=== PATIENT | female | born 1990 | race Caucasian/White ===

== ENCOUNTER → 2018-08-29 07:21 | Outpatient (CLI) | payer OTHER, SELFPAY ==
[2018-07-16 16:41] VITALS: BMI 21.2
[2018-08-29 08:12] LABS: Anion Gap 8 (5-15); BUN 14 mg/dL (7-18); BUN/Creat Ratio 18.7 RATIO (10-20); Calcium,Total 8.4 mg/dL (8.5-10.1); Chloride 106 mmol/L (98-107); Cholesterol 167 mg/dL (200); Creatinine, Serum 0.75 mg/dL (0.55-1.02); EST Glomerular Filtration Rate 97 mL/min (>60); Est Glom Filt Rate - Afr Amer 118 mL/min (>60); Glucose 86 mg/dL (74-106); High Density Lipoprotein 74 mg/dL; Potassium 4.2 mmol/L (3.5-5.1); Sodium Level 139 mmol/L (136-145); Triglycerides 54 mg/dL; Very Low Density Lipoprotein 11 mg/dL (5-40)
== END ==
PROVIDERS: Family Provider Family Medicine; PCP Family Medicine; Referring Provider Family Medicine; Visit Provider Family Medicine
DX: Z00.00 Encounter for general adult medical examination without abnormal findings (principal)
CPT/HCPCS: 36415; 80048; 80061

== ENCOUNTER → 2019-09-03 09:05 | Outpatient (CLI) | payer OTHER, SELFPAY ==
[2019-06-26 14:12] VITALS: BMI 21.2
[2019-09-03 10:24] LABS: Vitamin D,25 Hydroxy 32.4 ng/mL
[2019-09-03 10:34] LABS: Anion Gap 7 (5-15); BUN 9 mg/dL (7-18); BUN/Creat Ratio 11.9 RATIO (10-20); Calcium,Total 9.4 mg/dL (8.5-10.1); Chloride 103 mmol/L (98-107); Cholesterol 164 mg/dL (200); Creatinine, Serum 0.76 mg/dL (0.55-1.02); EST Glomerular Filtration Rate 95 mL/min (>60); Est Glom Filt Rate - Afr Amer 115 mL/min (>60); Glucose 90 mg/dL (74-106); High Density Lipoprotein 69 mg/dL; Potassium 3.7 mmol/L (3.5-5.1); Sodium Level 138 mmol/L (136-145); Thyroid Stim Hormone (TSH) 1.32 uIU/mL (0.358-3.74); Triglycerides 57 mg/dL; Very Low Density Lipoprotein 11 mg/dL (5-40)
== END ==
PROVIDERS: PCP Family Medicine; Referring Provider Family Medicine; Visit Provider Family Medicine
DX: Z00.00 Encounter for general adult medical examination without abnormal findings (principal)
CPT/HCPCS: 36415; 80048; 80061; 82306; 84443

== ENCOUNTER → 2020-09-17 06:04 | Outpatient (CLI) | payer OTHER, SELFPAY ==
[2020-09-17 07:23] LABS: Anion Gap 6 (5-15); BUN 10 mg/dL (7-18); BUN/Creat Ratio 13.7 RATIO (10-20); Calcium,Total 8.8 mg/dL (8.5-10.1); Chloride 104 mmol/L (98-107); Cholesterol 201 mg/dL (200); Creatinine, Serum 0.73 mg/dL (0.55-1.02); EST Glomerular Filtration Rate 99 mL/min (>60); Est Glom Filt Rate - Afr Amer 119 mL/min (>60); Glucose 82 mg/dL (74-106); High Density Lipoprotein 73 mg/dL; Potassium 3.6 mmol/L (3.5-5.1); Sodium Level 137 mmol/L (136-145); Thyroid Stim Hormone (TSH) 2.19 uIU/mL (0.358-3.74); Triglycerides 71 mg/dL; Very Low Density Lipoprotein 14 mg/dL (5-40)
[2020-09-17 09:02] LABS: Vitamin D,25 Hydroxy 35.3 ng/mL
== END ==
PROVIDERS: PCP Family Medicine; Referring Provider Family Medicine; Visit Provider Family Medicine
DX: Z00.00 Encounter for general adult medical examination without abnormal findings (principal)
CPT/HCPCS: 36415; 80048; 80061; 82306; 84443

== ENCOUNTER 2021-08-25 05:56 | Day surgery (SDC) | payer OTHER, SELFPAY ==
--- NOTE | 2021-08-10 15:52 | PCM.HP.BLA ---
History and Physical Date of Admission: 08/25/21 HPI: The patient is a 31 year old female presenting for pre-operative visit. She is scheduled for laparoscopic bilateral salpingectomy, for sterilization on 08/25/2021. Procedure discussed along with risks, benefits and complications. Other alternatives discussed for management. Consent form signed? Yes. ? ? PAST MEDICAL HISTORY PAST MEDICAL HISTORY Diagnosis Date ? Acne ? ? Encounter for insertion of mirena IUD 04/12/2018 ? PMH - PAST MEDICAL HISTORY OF [id number] ? Right and Left Herniorrhaphy ? PMH - PAST MEDICAL HISTORY OF 08/1994 ? normal color vision ? Rosacea ? ? ? PAST SURGICAL HISTORY PAST SURGICAL HISTORY Procedure Laterality Date ? EXTRACTION, ERUPTED TOOTH OR EXPOSED ROOT (ELEVATION AND/OR FORCEPS REMOVAL) ? ? ? HERNIA REPAIR HX ? 1992 ? double hernia ? ? ? CURRENT MEDICATIONS Current Outpatient Medications Medication Sig Dispense Refill ? MULTIVITAMIN ORAL Take by mouth. ? ? ? spironolactone (ALDACTONE) 100 mg tablet Take 100 mg by mouth once daily. ? ? ? spironolactone (ALDACTONE) 50 mg tablet Take 50 mg by mouth daily at bedtime. ? ? ? levonorgestrel (MIRENA) 20 mcg/24 hr (5 years) IUD 1 Each by INTRAUTERINE route one time only. ? ? ? No current facility-administered medications for this visit. ? ? ALLERGIES: Septra [Sulfamethoxazole-Trimethoprim], Neosporin (Neomycin-Polymyx), and Solodyn [Minocycline] ? PERSONAL HISTORY: SOCIAL HISTORY Social History ? Tobacco Use ? Smoking status: Never Smoker ? Smokeless tobacco: Never Used Vaping Use ? Vaping Use: Never used Substance Use Topics ? Alcohol use: Yes ? ? Comment: occ ? Drug use: No ? FAMILY HISTORY: FAMILY HISTORY FAMILY HISTORY Problem Relation Age of Onset ? Heart Failure Mother 61 ? Diabetes Maternal Grandmother ? ? Maternal and Paternal side. ? other (Hyperlipidemia) Maternal Grandmother ? ? other (glaucoma) Maternal Grandmother ? ? pgfa and father ? ? REVIEW OF SYMPTOMS: GENERAL: denies fevers or chills ENDOCRINOLOGY: has not been on steroids Cardiology : denies palpitations or chest pain Respiratory: denies SOB or cough Hematology: denies history of prolonged bleeding or easy bruising or VTE Allergy: Denies history of personal or family history of allergy to anesthesia ? PHYSICAL EXAMINATION: ? VITALS: Last menstrual period 05/07/2017. ? GENERAL: The patient is well nourished, well hydrated in no acute distress. , The patient is oriented to time, place, and person. NECK: Supple. No lynphadenopathy, normal thyroid, no thyromegaly. LUNGS: Clear to auscultation bilaterally. no wheezes, rhonchi or rales HEART: Regular rate and rhythm, Normal heart sounds and No murmurs or gallops ? IMPRESSION: sterilization request ? PLAN: The risks/benefits/alternatives and personal involved for the planned laparoscopic bilateral salpingectomy were reviewed with the patient. Her questions were answered to her satisfaction and she desires to proceed. Consent was signed. I reviewed with her postop instructions and expectations. ? ? I have reviewed and updated past medical and surgical history, medications and allergies Assessment & Plan Assessment/Plan (1) Sterilization:
--- NOTE | 2021-08-25 | FALS_PTH ---
PATIENT: LUIS SHEPHERD [place] [facility] [place][id number] AGE/SX: 31/F ROOM: RE08/25/[address]: Dr. Nidia Queen MD : 1990 BED: DIS: 08/25/2021 SPEC #: [id number] RECD: 08/25/21 10:42 STATUS: SHERRON RENilsa #: [id number] SERA: 08/25/21 00:[address]: Nidia Queen DEPT: SURGICAL PATHOLOGY RECD BY: Tiny Diehl ENTERED: 08/25/21 11:34 SP TYPE: FALL TUBES OTHR DR: Dr. Jaime Adame MD Tissues: Fallopian tube Procedures: Surgery Specimen Level II HEADER OPERATION: Laparoscopic salpingectomy PRE-OP DIAGNOSIS: Sterilization TISSUE SUBMITTED: Bilateral fallopian tubes MICROSCOPIC DIAGNOSIS Bilateral fallopian tubes, salpingectomy: Bilateral fallopian tubes, no pathologic diagnosis. SJ:shahriar 08/26/2021 MICROSCOPIC DESCRIPTION Slides are reviewed. GROSS DESCRIPTION Received in fixative is one container labeled with the patient's name and designated bilateral fallopian tubes. The specimen consists of bilateral fallopian tubes including fimbrial ends measuring 5.5 cm in length and 0.8 cm in diameter and 5 cm in length and 0.7 cm in diameter. The fallopian tubes are not identified as right or left. Sections reveal unremarkable cut surfaces. Vehicle Detailer sections are submitted in two cassettes with each cassette containing one fallopian tube. / FLORENCIA:shahriar 08/25/2021 TC:4 CPT: 68379 x2
[2021-08-25 06:27] LABS: Hematocrit 41.1 % (37-47); Hemoglobin 14.1 g/dL (12.0-15.0); Mean Corp Hgb Conc 34.3 g/dL (32-36); Mean Corpuscular Hgb 30.5 pg (27.0-32.0); Mean Platelet Vol. 10.2 fl (6.2-12.0); Platelet Count 234 K/mm3 (150-450); RBC Distribution Width CV 12.5 % (11.6-14.6); RBC Distribution Width SD 41.1 fl (35.1-43.9); Red Blood Count 4.62 M/mm3 (4.2-5.4); White Blood Count 6.3 K/mm3 (4.4-11.0)
[2021-08-25 06:28] VITALS: BP 103/64; PULSE 78; RESP 16; TEMP 37.2; O2SAT 100; BMI 20.7
[2021-08-25 06:29] LABS: Internal QC Validated? YES +Cl - CLEAR BKGD; Pregnancy, Urine Negative Negative
[2021-08-25] MEDS: Celecoxib 200 MG Capsule PO (06:32)
[2021-08-25] MEDS: Lactated Ringers 1,000 ML 15 ML IV (06:32)
[2021-08-25 06:39] LABS: Anion Gap 5 (5-15); BUN 10 mg/dL (7-18); BUN/Creat Ratio 13.9 RATIO (10-20); Chloride 108 mmol/L (98-107); Creatinine, Serum 0.72 mg/dL (0.55-1.02); EST Glomerular Filtration Rate 99 mL/min (>60); Est Glom Filt Rate - Afr Amer 120 mL/min (>60); Estimated Creatinine Clearance 92.79 ml/min; Glucose 81 mg/dL (74-106); Potassium 3.7 mmol/L (3.5-5.1); Sodium Level 140 mmol/L (136-145)
--- NOTE | 2021-08-25 07:31 | PCM.DC ---
Discharge Instructions Diet Discharge Diet: No restrictions Activity May resume sexual activity in: 1 week Dressing / Incision Call your doctor if your incision/area has: Sudden Increased Bleeding and Foul Smelling Discharge Call your doctor if you observe: Fever of 101 or Higher Cleanse incision/area with: Soap & Water (Your incisions have skin glue and it can get wet. Leave on until it falls off) Follow Up Care Please Follow Up With: Nidia Queen MD When: In my office or virtual visit in 1-2 weeks or as needed Test Results: Test results from this visit will be discussed in further detail at your follow-up appointment, if applicable. Discharge Plan Admission Primary Reason for Your Visit: Tubal sterilization Attending Provider: Nidia Queen Primary Care Provider: Jaime Adame Discharge Orders/Prescriptions Prescriptions: No Action Mirena 20 mcg/24 hr (5 years) intrauterine device 1 insert Intrauterine ONCE RF: 0 spironolactone 100 mg Tablet 100 mg PO DAILY RF: 0 multivitamin Capsule 1 cap PO DAILY RF: 0 spironolactone 50 mg Tablet 50 mg PO QHS RF: 0 Probiotic 3 billion cell Capsule 3,000 mmu cells PO DAILY RF: 0 Referrals / Follow Up: Jaime Adame MD [Primary Care Provider] - Disposition Disposition (needs filled in before D/C Order can be placed): Home, Self Care
[2021-08-25] MEDS: Lubricating Jelly 60 GM Tube 30 GM (07:40)
[2021-08-25] MEDS: Bupivacaine Mpf 0.5% 30 ML VIAL (07:50)
--- NOTE | 2021-08-25 08:01 | PCM.OPRPT ---
Problems Associated Problem List Diagnoses (1) Sterilization: Report of Operation Date of Procedure: 08/25/21 Pre-Operative Diagnosis: sterilization request Post-Operative Diagnosis: same Surgery/Procedure Performed:: Laparoscopic bilateral salpingectomy Description of Surgical Findings:: normal uterus, tubes, ovaries, cervix and vagina Surgeon: Nidia Queen rate marker: None Type of Anesthesia: General Anesthesiologist: Dorcas Fierro Special Medications: none Specimen's removed: bilateral fallopian tubes Drains: none Estimated Blood Loss (mL): 10 Fluids Replaced: 600 mL Description of Procedure: The patient was taken to the operating room where she was prepped and draped in the dorsolithotomy position. A weighted speculum was placed in the vagina and the anterior lip of the cervix was grasped with a tenaculum. The ZMedityplus uterine manipulator was placed and the remainder of the instruments were removed from the vagina. Attention was turned to the abdomen. All port sites were infiltrated with 0.5% Marcaine before skin incisions were made. A 5 mm [intraumbilical] incision was made. The anterior abdominal wall was tented up with 2 towel clamps while a 5 mm blade less trocar and sleeve were [directly inserted]. Intraperitoneal placement was confirmed with the laparoscope. The pneumoperitoneum was created and the underlying abdominal contents were intact. The patient was placed in Trendelenburg. Right and left lower quadrant ports were placed under direct visualization lateral to the inferior epigastric vessels. The bowel was swept away and the above findings were noted. The Enseal device was used to clamp seal and transect the antimesenteric portions of the right tube to the cornual insertion of the uterus. The tube was amputated from the uterus and the pedicles were all confirmed to be hemostatic. The same procedure was performed on the contralateral side. The specimens were brought out through a 5 mm port. The pedicles were again examined and found to be hemostatic. The lateral ports were removed under direct visualization and no active bleeding was noted. The pneumoperitoneum was released. The skin incisions were closed with Monocryl suture in a subcuticular fashion and skin glue . The vaginal instruments were removed and the vaginal sweep was completed by me. The procedure was performed by me. All sponge and needle counts were correct and the patient was taken to the recovery room in stable condition. Grafts/Implants Used: none Procedure Start Time: 07:41 Procedure Stop Time: 08:01 Complications none Admit VTE Documentation VTE Present on Admission: No VTE Mechan Device Prophylaxis: SCD's VTE Pharm Prophylaxis ordered?: No Reason prophylaxis not ordered:: Procedure Not Indicated
[2021-08-25 08:13] VITALS: BP 103/64; BP 111/77; PULSE 81; RESP 16; TEMP 36.5; O2SAT 94
[2021-08-25 08:15] VITALS: BP 103/64; BP 108/71; PULSE 72; RESP 16; O2SAT 97
[2021-08-25 08:30] VITALS: BP 103/64; BP 104/75; PULSE 67; RESP 16; O2SAT 98
[2021-08-25 08:38] VITALS: BP 103/64; BP 108/72; PULSE 61; RESP 16; TEMP 36.6; O2SAT 97
--- NOTE | 2021-08-25 08:48 | SUR.PHASEI ---
REDNESS NOTED AT RIGHT ARM IV SITE AFTER MORPHINE ADMINISTRATION. DR WOODALL INFORMED AND ORDERED IV BENADRYL. PATIENT AGREES AND UNDERSTANDS. SCANT BLEEDING NOTED FROM UMBILICAL SITE. OR CHARGE NURSE TO BEDSIDE TO ASSESS. WILL CONT TO MONITOR. DERMABOND REMAINS IN PLACE. PATIENT RESTING COMFORTABLY.
[2021-08-25 09:34] VITALS: BP 103/64; BP 99/62; PULSE 65; RESP 16; TEMP 36.5; O2SAT 100
== END 2021-08-25 23:59 | disposition home or self-care (01) ==
LOC: SDC 05:58 → AC 05:58
PROVIDERS: Anesthesiology; PCP Family Medicine; Referring Provider Obstetrics & Gynecology; Visit Provider Obstetrics & Gynecology
PROC: (CPT 58661; principal; 2021-08-25 07:15)
DX: Z30.2 Encounter for sterilization (principal); L70.9 Acne, unspecified; Z79.899 Other long term (current) drug therapy; Z97.5 Presence of (intrauterine) contraceptive device; L71.9 Rosacea, unspecified; M99.01 Segmental and somatic dysfunction of cervical region; M99.02 Segmental and somatic dysfunction of thoracic region; M99.03 Segmental and somatic dysfunction of lumbar region; M99.05 Segmental and somatic dysfunction of pelvic region; G25.81 Restless legs syndrome
CPT/HCPCS: 58661; 00840; 80048; 81025; 85027; 88302; J7120; C1760; J2405

== ENCOUNTER 2021-09-15 06:38 | Outpatient (CLI) | payer OTHER, SELFPAY ==
[2021-09-15 07:47] LABS: Cholesterol 205 mg/dL (200); High Density Lipoprotein 77 mg/dL; Triglycerides 63 mg/dL; Very Low Density Lipoprotein 13 mg/dL (5-40)
== END 2021-09-15 23:59 | disposition home or self-care (01) ==
LOC: LAB 06:39
PROVIDERS: PCP Family Medicine; Referring Provider Family Medicine; Visit Provider Family Medicine
DX: Z01.419 Encounter for gynecological examination (general) (routine) without abnormal findings (principal)
CPT/HCPCS: 36415; 80061

== ENCOUNTER → 2022-02-27 | Outpatient (CLI) | payer OTHER, SELFPAY ==
[2022-02-27 17:48] LABS: Absolute Lymphocyte Count 2.23 X10^3/uL (0.83-4.51); Absolute Neutrophil Count 3.1 X10^3/uL (2.0-7.7); Basophil# 0.05 X10^3/uL; Basophil% 0.8 % (0-1); Eosinophils% 1.6 % (0-5); Hematocrit 36.9 % (37-47); Hemoglobin 12.3 g/dL (12.0-15.0); Lymphocyte # 2.23 X10^3/ul (0.83-4.51); Mean Corp Hgb Conc 33.3 g/dL (32-36); Mean Corpuscular Hgb 30.1 pg (27.0-32.0); Mean Corpuscular Volume 90.4 fL (81-99); Mean Platelet Vol. 10.5 fl (6.2-12.0); Monocyte# 0.84 X10^3/uL; Monocyte% 13.2 % (0-10); NRBC Flagged by Analyzer 0 % (0-5); Neutrophil # 3.14 X10^3/uL (2.7-7.7); Neutrophil % 49.2 % (47-70); Platelet Count 224 K/mm3 (150-450); RBC Distribution Width CV 12.4 % (11.6-14.6); RBC Distribution Width SD 41.1 fl (35.1-43.9); Red Blood Count 4.08 M/mm3 (4.2-5.4); White Blood Count 6.4 K/mm3 (4.4-11.0)
[2022-02-27 18:21] LABS: Anion Gap 6 (5-15); BUN 8 mg/dL (7-18); BUN/Creat Ratio 10.4 RATIO (10-20); Calcium,Total 8.8 mg/dL (8.5-10.1); Chloride 107 mmol/L (98-107); Creatinine, Serum 0.77 mg/dL (0.55-1.02); EST Glomerular Filtration Rate 92 mL/min (>60); Est Glom Filt Rate - Afr Amer 111 mL/min (>60); Glucose 85 mg/dL (74-106); Potassium 3.7 mmol/L (3.5-5.1); Sodium Level 141 mmol/L (136-145)
== END | disposition home or self-care (01) ==
LOC: MFPLAB 16:43
PROVIDERS: PCP Family Medicine; Referring Provider Family Medicine; Visit Provider Family Medicine
DX: R42 Dizziness and giddiness (principal)
CPT/HCPCS: 36415; 80048; 85025

== ENCOUNTER 2023-08-11 06:27 | Emergency (ER) | payer OTHER, SELFPAY ==
[2023-08-11 06:29] VITALS: BP 106/75; PULSE 94; RESP 16; TEMP 37.1; O2SAT 95; BMI 21.0
--- NOTE | 2023-08-11 06:34 | EX.ED.DYSGE1 ---
HPI <Dr. Anibal Still MD - Last Filed: 08/11/23 10:36> History of Present Illness Chief Complaint: Nausea/Vomiting/Diarrhea Detail of Chief Complaint: Nausea vomiting and diarrhea with orthostatic lightheadedness and fall Informant: patient and family Onset/Context/Timing Onset: Today and Hours Context: Sudden Onset Timing: Continuous and Waxes and wanes Quality: Nausea, vomiting diarrhea for the past 12 to 24 hours Location: GI Current Severity: Mild Maximum Severity: Moderate Worsened by: Nothing specific Relieved by: Nothing Associated Symptoms Associated Symptoms: Dry mouth, thirst and orthostatic lightheadedness with fall Narrative Narrative: Patient is a 33-year-old woman who was last normal menstrual period was August 02. She has no signs symptoms of . She presents with nausea, vomiting diarrhea that started yesterday. She has vomited several times and had several loose watery stools. Denies blood or mucus in her stool. She denies blood or coffee grounds in her emesis. She has an IUD in place. She does complain of headache and localizes it to the right forehead region. She denies double vision, blurred vision loss of vision denies ringing in ears or decreased hearing patient has neck pain. Denies paresthesia, anesthesia medics. She denies any ill contacts. She denies urologic symptoms. She does endorse thirst, dry mouth and orthostatic symptoms. Family was concerned that she may have hit her head because when she fell she was near her dresser. Prior similar symptoms: No Recent Illness/Hospitalization: No PFSH <Dr. Anibal Still MD - Last Filed: 08/11/23 10:36> PFS Medical History Acne Anxiety Back pain Depression Headache Non-smoker Restless legs Sterilization Wears contact lenses Home Medications levonorgestrel 21 mcg/24 hours (8 yrs) 52 mg intrauterine device (Mirena) 1 insert intrauterine ONCE 07/11/18 [History Last Taken Unknown] lactobacillus combination no.4 3 billion cell capsule (Probiotic) 3,000 mmu cells PO DAILY 08/18/21 [History Last Taken Unknown] multivitamin 1 cap PO DAILY 08/18/21 [History Last Taken Unknown] spironolactone 100 mg tablet 100 mg PO DAILY 08/18/21 [History Last Taken Unknown] spironolactone 50 mg tablet 50 mg PO QHS 08/18/21 [History Last Taken Unknown] scopolamine base 1 mg over 3 days transdermal patch 1 patch transdermal Q3D PRN motion sickness #4 ea 12/12/21 [Rx Last Taken Unknown] ondansetron 4 mg disintegrating tablet 8 mg (2 x 4 mg) PO Q8H PRN PRN Nausea #20 tabs 08/11/23 [Rx Last Taken Unknown] Allergy/AdvReac Type Severity Reaction Status Date / Time bacitracin Allergy Rash Verified 01/03/22 15:26 [From Neosporin ([id number])] minocycline Allergy Hives Verified 01/03/22 15:26 neomycin Allergy Rash Verified 01/03/22 15:26 [From Neosporin ([id number])] polymyxin B Allergy Rash Verified 01/03/22 15:26 [From Neosporin ([id number])] sulfamethoxazole Allergy Rash Verified 01/03/22 15:26 [From Septra] trimethoprim [From Septra] Allergy Rash Verified 01/03/22 15:26 Family History Other Thyroid disorder Surgical History History of hernia repair Hx of wisdom tooth extraction Social History Smoking Status: Never smoker alcohol intake: current alcohol intake frequency: holidays/special occasions only substance use type: does not use what type of physical activity do you participate in: running and aerobics frequency: 5-6 times per week ROS <Dr. Anibal Still MD - Last Filed: 08/11/23 10:36> ROS ED Constitutional Constitutional ED: Denies chills, fever(s), subjective or sweats Eyes Eyes: Denies blurry vision, change in vision or diplopia ENT ENT ED: Denies ear pain or sore throat Cardiovascular Cardiovascular: Denies chest pain or palpitations Respiratory/Chest Respiratory/Chest: Denies cough, dyspnea or dyspnea on exertion Gastrointestinal Gastrointestinal: Reports diarrhea, nausea and vomiting; Denies abdominal pain or melena Genitourinary Genitourinary ED: Denies dysuria, hematuria or urinary frequency Musculoskeletal Musculoskeletal: Denies arthralgias, back pain or myalgias Integumentary Denies rash Neurologic Neurologic: Reports headache(s); Denies paresthesias or weakness Hematologic/Lymphatic Hematologic/Lymphatic: Reports systems reviewed and no addt'l complaints, except as documented EXAM <Dr. Anibal Still MD - Last Filed: 08/11/23 10:36> Physical Exam Const Vital Signs: 08/11/23 06:29 08/11/23 08:27 08/11/23 10:00 Temperature 98.8 F 98.7 F Temperature Source Oral Oral Pulse Rate 94 86 105 H Respiratory Rate 16 16 Blood Pressure 106/75 103/68 101/63 Blood Pressure Mean 85 79 75 Pulse Ox 95 98 98 Oxygen Delivery Method Room Air Room Air Positive well nourished and well developed Constitutional Narrative: Patient appears ill and pale. General Appearance ED: well developed, NAD and pallor HEENT Reports dry mucous membranes HEENT Narrative: Head is atraumatic and normocephalic. There is no clinical signs of basilar skull fracture. There is no evidence of head trauma. Mouth ED: Yes dry mucous membranes Mouth: dry mucous membranes Eyes PERRL and EOMs intact bilaterally General Eye ED: Negative for pale conjunctiva or scleral icterus Neck no lymphadenopathy, supple and no JVD Chest Wall inspection of chest normal and palpation of chest normal Resp normal respiratory effort and clear to auscultation bilaterally Cardio regular rate, regular rhythm, S1 normal heart sound, S2 normal heart sound and no murmurs GI non-tender, non-distended and no masses; Negative for normal to inspection, nondistended, normoactive bowel sounds or hepatosplenomegaly Auscultation: hypoactive bowel sounds Palpation: soft Back/Spine no CVA tenderness Extremity normal to inspection Neuro oriented x3, CN's II-XII intact bilaterally and no sensory deficits noted Neuro Narrative: There is no clonus or Babinski sign. There is no dysmetria. Sensorium / Orientation: alert Motor Exam: strength 5/5 throughout Psych mental status grossly normal Skin no rashes or lesions noted, no wounds and skin turgor normal General Skin Exam: elasticity normal and pallor; Negative for jaundice <Dr. Nestor Ross MD - Last Filed: 08/11/23 08:54> Physical Exam Const Vital Signs: 08/11/23 06:29 08/11/23 08:27 08/11/23 10:00 Temperature 98.8 F 98.7 F Temperature Source Oral Oral Pulse Rate 94 86 105 H Respiratory Rate 16 16 Blood Pressure 106/75 103/68 101/63 Blood Pressure Mean 85 79 75 Pulse Ox 95 98 98 Oxygen Delivery Method Room Air Room Air [facility] <Dr. Anibal Still MD - Last Filed: 08/11/23 10:36> [facility] Narrative Medical decision making narrative: Patient with nausea, vomiting and diarrhea most likely viral illness. Clinically she is dehydrated with orthostatic symptoms. 1 L normal saline was ordered. BMP was obtained to assess electrolytes renal function and specifically for hypokalemia. Explained to family that even if she did hit her head based on the Walsh CT head rule and Ephraim rule imaging is not indicated or warranted. Zofran was ordered for her nausea and vomiting and Imodium for her diarrhea. Will inform morning physician of patient's history physical and workup. Care be transferred to Dr. Cesar. Lab Data Attestation: I reviewed the patient's lab results. Lab results narrative: CO2 is 20 which is slightly low. Gap is normal. Blood sugar is elevated 182. She is not having elevated blood sugar in the past. This will need to be followed as an outpatient. Labs: Laboratory Results - last 24 hr 08/11/23 06:38 Sodium 136 Potassium 4.1 Chloride 106 Carbon Dioxide 20.0 L Anion Gap 10 BUN 13 Creatinine 1.00 Estim Creat Clear Calc 65.57 Est GFR (MDRD) Af Amer 81 Est GFR (MDRD) Non-Af 67 BUN/Creatinine Ratio 13.0 Glucose 182 H Calcium 9.5 Treatment and Re-Evaluation :: Patient was reassessed at 0705. She is smiling. She has color to her face. She reports she feels much better. Will hydrate until she is able to urinate. <Dr. Nestor Ross MD - Last Filed: 08/11/23 08:54> [facility] Lab Data Labs: Laboratory Results - last 24 hr 08/11/23 06:38 Sodium 136 Potassium 4.1 Chloride 106 Carbon Dioxide 20.0 L Anion Gap 10 BUN 13 Creatinine 1.00 Estim Creat Clear Calc 65.57 Est GFR (MDRD) Af Amer 81 Est GFR (MDRD) Non-Af 67 BUN/Creatinine Ratio 13.0 Glucose 182 H Calcium 9.5 Treatment and Re-Evaluation Comments:: Patient turned over to me. Less than 12 hours of nausea, vomiting, diarrhea without abdominal pain, labs showing a decreased bicarbonate without elevation of anion gap, suspect likely due to the acute diarrhea and mild dehydration. After liter fluid she is doing well and feeling much better. She can stand but feeling lightheaded, and she is tolerating oral fluids. Therefore, we gave her another liter of IVF, which helped. Her blood sugar is elevated, and is essentially fasting since she has been vomiting all night overnight. This is concerning and she should be screened further for diabetes, she can follow-up with her doctor as an outpatient for that. I discussed that with her and family and answered all of their questions, she is tolerating oral fluids so we will give her prescription for Zofran, hopefully this is a viral gastroenteritis, this has been prevalent in the area recently. We discussed reasons to return she comfortable with that plan. Discharge Plan Triage Chief Complaint: Nausea/Vomiting/Diarrhea ED Provider: Anibal Still Dx/Rx/DC Orders Clinical Impression: Gastroenteritis, Hyperglycemia, Acute dehydration, Metabolic acidemia Instructions: ED Gastroenteritis, Viral (Adult) Prescriptions: New ondansetron [ondansetron] 4 mg tablet,disintegrating 8 mg PO Q8H PRN PRN (Reason: Nausea) Qty: 20 0RF No Action Mirena 20 mcg/24 hr (5 years) intrauterine device 1 insert Intrauterine ONCE scopolamine base 1 mg over 3 days patch 3 day 1 patch transdermal Q3D PRN (Reason: motion sickness) Qty: 4 0RF spironolactone 100 mg Tablet 100 mg PO DAILY multivitamin Capsule 1 cap PO DAILY spironolactone 50 mg Tablet 50 mg PO QHS Probiotic 3 billion cell Capsule 3,000 mmu cells PO DAILY Primary Care Provider: Jaime Adame Referrals: Jaime Adame MD [Primary Care Provider] - As soon as possible
[2023-08-11] MEDS: Ondansetron 4 MG/2 ML Vial IV (06:45)
[2023-08-11] MEDS: Loperamide 2 MG Capsule 4 MG PO (06:45)
[2023-08-11] MEDS: 0.9% Normal Saline (1000mL) 1,000 ML 1000 ML IV ×2 (06:45→08:44)
--- OUTSIDE RECORDS SUMMARY | 2023-08-11 06:50 | XMS RPT_ITS | CCD ---
Author Name Unknown Address [facility] [address] [place] [address] Organization [facility] Care Team Providers Care Staff Counselor Name Role Phone Jaime Barajas MD Primary Care Provider KENDRA SARMIENTO Attending Unavailable JAIME BARAJAS Primary Care Unavailable KENDRA SARMIENTO Attending Unavailable JAIME BARAJAS Primary Care Unavailable KENDRA SARMIENTO Attending Unavailable TERRIE CANELA Referring Unavailable JAIME BARAJAS Primary Care Unavailable JAIME BARAJAS Primary Care Unavailable TERRIE CANELA Referring Unavailable TERRIE CANELA Attending Unavailable TERRIE CANELA Attending Unavailable JAIME BARAJAS Primary Care Unavailable KENDRA SARMIENTO Referring Unavailable JAIME BARAJAS Primary Care Unavailable Jaime Barajas MD Primary Care Provider Allergies Allergy Classification Reported Allergen(s) Allergy Type Date of Onset Reaction(s) Facility (10 sources) Bacitracin / Neomycin / Polymyxin B; Translations: [NEOSPORIN (NEOMYCIN-POLYMYX)] Drug Allergy 5 [facility] (10 sources) Minocycline; Translations: [MINOCYCLINE] Drug Allergy [address] [facility] (10 sources) Sulfamethoxazole / Trimethoprim; Translations: [SULFAMETHOXAZOLE-TRI METHOPRIM] Drug Allergy 9 [facility] Work Phone: Medications Current Medications Medication Drug Class(es) Dates Sig (Normalized) Sig (Original) 21 day ethinyl estradiol 0.086056 mg/hr / etonogestrel 0.005 mg/hr vaginal system (4 sources) Progestin, Estrogen Start: 06-01-2022 End: 08-10-2023 Etonogestrel-Ethiny l Estradiol (NUVARING) 0.12-0.015 mg/24 hr vaginal ring Indications: Encounter for initial management of nuvaring Use 1 Each vaginally as directed. INSERT ONE(1) RING VAGINALLY AND LEAVE IN PLACE FOR THREE WEEKS, THEN REMOVE FOR 1 WEEK. 3 Each 4 06/01/2022 08/10/2023 Discontinued Completed/Discontinued Medications Medication Drug Class(es) Dates Sig (Normalized) Sig (Original) levonorgestrel 0.808110 mg/hr intrauterine system (6 sources) Progestin, Progestin-containi ng Intrauterine Device End: 06-01-2022 levonorgestrel (MIRENA) 20 mcg/24 hours (7 yrs) 52 mg IUD 1 Each by INTRAUTERINE route one time only. 0 06/01/2022 Discontinued Problems Problem Classification Problem Date Documented Da te Episodic/Chronic Contraceptive and procreative management (2 sources) Patient encounter status; Translations: [Encounter for surveillance of other contraceptives] Episodic Menstrual disorders (1 source) Break-through bleeding; Translations: [Excessive and frequent menstruation with irregular cycle] Chronic Mood disorders (1 source) Premenstrual dysphoric disorder; Translations: [Premenstrual dysphoric disorder] Chronic Viral infection (1 source) Human papilloma virus infection; Translations: [Papillomavirus as the cause of diseases classified elsewhere] Episodic Results Test Name Value Interpretation Reference Range Facil ity Vital Signs Date Time Vital Sign Value Performing Clinician Quinton luevano 08-10-2023 07:42-0500 Body height 160 cm Terrie Canela APRN.CNP Work Phone: [facility] 08-10-2023 07:42-0500 Body weight 54.43 kg Terrie Canela APRN.CNP Work Phone: [facility] 08-10-2023 07:42-0500 Diastolic blood pressure 60 mm[Hg] Terrie Canela APRN.CNP Work Phone: [facility] 08-10-2023 07:42-0500 Systolic blood pressure 98 mm[Hg] Terrie Canela APRN.CNP Work Phone: [facility] 06-21-2022 15:29-0500 Body weight 53.52 kg Terrie Canela APRN.CNP Work Phone: [facility] 06-01-2022 15:50-0500 Body height 162.6 cm Terrie Canela APRN.[employer] Work Phone: [facility] 06-01-2022 15:50-0500 Body weight 53.52 kg Terrie Canela APRN.[employer] Work Phone: [facility] 06-01-2022 15:50-0500 Diastolic blood pressure 60 mm[Hg] Terrie Canela APRN.[employer] Work Phone: [facility] 06-01-2022 15:50-0500 Systolic blood pressure 98 mm[Hg] Terrie Canela APRN.[employer] Work Phone: [facility] 01-09-2022 15:53-0400 Body weight 51.71 kg Nurse Wstr Work Phone: [facility] 01-09-2022 15:53-0400 Diastolic blood pressure 60 mm[Hg] Nurse Wstr Work Phone: [facility] 01-09-2022 15:53-0400 Systolic blood pressure 100 mm[Hg] Nurse Wstr Work Phone: [facility] Encounters Encounter Date Encounter Type Care Provider Facility Start: 08-10-2023 End: 08-10-2023 Patient encounter procedure Terrie Canela APRN.[employer] Work Phone: OB/Gynecology Plan of Treatment Date Care Activity Detail Author Start: 05-09-2028 Urine microalbumin profile [facility] Start: 05-31-2026 HPV TESTING HPV TESTING [facility] Start: 05-31-2026 PAP TESTING PAP TESTING [facility] Start: 05-31-2026 Screening for malignant neoplasm of cervix [facility] Start: 06-04-2023 Depression Assessment Depression Assessment [facility] Start: 02-02-2023 Covid-19 Vaccine () Covid-19 Vaccine () [facility] Start: 02-02-2023 Influenza vaccination Influenza Vaccine (#1) [facility] Start: 06-04-2022 DEPRESSION ASSESSMENT DEPRESSION ASSESSMENT [facility] Start: 02-02-2022 Influenza vaccination INFLUENZA (#1) [facility] Start: 2007 HEPATITIS C SCREENING HEPATITIS C SCREENING [facility] Start: 2007 Hepatitis C screening Hepatitis C Screening [facility] Start: 2007 HIV SCREENING HIV SCREENING [facility] Start: 2007 HIV screening HIV Screening [facility] Start: 2001 Adult depression screening assessment DEPRESSION SCREENING [facility] Removal intrauterine device iud REMOVE INTRAUTERINE DEVICE Procedures Routine PMDD (premenstrual dysphoric disorder) Breakthrough bleeding with IUD Ordered: 06/01/2022 [facility] Work Phone: Immunizations Immunization Date Immunization Notes Care Provider Jared [facility] 03-27-2022 influenza virus vacc ine, unspecified formulation Terrie Canela APRN.[employer] Work Phone: [facility] 01-09-2022 Human Papillomavirus 9-valent vaccine Nurse Wstr Work Phone: [facility] Work Phone: 09-06-2021 Human Papillomavirus 9-valent vaccine Terrie Canela APRN.[employer] Work Phone: [facility] 07-04-2021 Human Papillomavirus 9-valent vaccine Kendra Sarmiento MD Work Phone: [facility] 03-29-2021 influenza, seasonal, injectable, preservative free Kendra Sarmiento MD Work Phone: [facility] Work Phone: 03-02-2020 influenza, seasonal, injectable, preservative free Kendra Sarmiento MD Work Phone: [facility] Work Phone: 02-27-2020 influenza virus vacc ine, unspecified formulation Kendra Sarmiento MD Work Phone: [facility] Work Phone: 04-07-2019 influenza, seasonal, injectable, preservative free Kendra Sarmiento MD Work Phone: [facility] Work Phone: 11-13-2018 hepatitis B vaccine, adult dosage Kendra Sarmiento MD Work Phone: [facility] Work Phone: 06-12-2018 hepatitis B vaccine, adult dosage Kendra Sarmiento MD Work Phone: [facility] Work Phone: 05-20-2018 varicella virus vaccine Veronica Sarmiento MD Work Phone: [facility] Work Phone: 05-09-2018 hepatitis B vaccine, adult dosage Kendra Sarmiento MD Work Phone: [facility] Work Phone: 05-09-2018 tetanus toxoid, redu chely diphtheria toxoid, and acellular pertussis vaccine, adsorbed Kendra Sarmiento MD Work Phone: [facility] Work Phone: 02-24-2018 influenza, injectabl e, quadrivalent, preservative free Kendra Sarmiento MD Work Phone: [facility] Work Phone: 01-26-2017 influenza, injectabl e, quadrivalent, preservative free Kendra Sarmiento MD Work Phone: [facility] Work Phone: 07-06-2006 Meningococcal, MCV4, unspecified conjugate formulation(groups A, C, Y and W-135) Kendra Sarmiento MD Work Phone: [facility] Work Phone: 07-06-2006 tetanus toxoid, redu chely diphtheria toxoid, and acellular pertussis vaccine, adsorbed Kendra Sarmiento MD Work Phone: [facility] Work Phone: 08-13-2001 measles, mumps and rubella virus vaccine Kendra Sarmiento MD Work Phone: [facility] Work Phone: 05-18-1999 varicella virus vaccine Veronica Sarmiento MD Work Phone: [facility] Work Phone: 08-08-1994 diphtheria, tetanus toxoids and acellular pertussis vaccine Kendra Sarmiento MD Work Phone: [facility] Work Phone: 08-08-1994 trivalent poliovirus vaccine, live, oral Kendra Sarmiento MD Work Phone: [facility] Work Phone: 08-16-1990 diphtheria, tetanus toxoids and pertussis vaccine Kendra Sarmiento MD Work Phone: [facility] Work Phone: 08-16-1990 trivalent poliovirus vaccine, live, oral Kendra Sarmiento MD Work Phone: [facility] Work Phone: 06-26-1990 haemophilus influenz ae type b vaccine, HbOC conjugate Kendra Sarmiento MD Work Phone: [facility] Work Phone: 06-26-1990 measles, mumps and rubella virus vaccine Kendra Sarmiento MD Work Phone: [facility] Work Phone: 1989 diphtheria, tetanus toxoids and pertussis vaccine Kendra Sarmiento MD Work Phone: [facility] Work Phone: 1989 trivalent poliovirus vaccine, live, oral Kendra Sarmiento MD Work Phone: [facility] Work Phone: 1989 diphtheria, tetanus toxoids and pertussis vaccine Kendra Sarmiento MD Work Phone: [facility] Work Phone: 1989 trivalent poliovirus vaccine, live, oral Kendra Sarmiento MD Work Phone: [facility] Work Phone: 1989 diphtheria, tetanus toxoids and pertussis vaccine Kendra Sarmiento MD Work Phone: [facility] Work Phone: 1989 trivalent poliovirus vaccine, live, oral Kendra Sarmiento MD Work Phone: [facility] Work Phone: Payers Date Payer Category Payer Medicare AET[employer] MEDICARE A ETNA MEDICARE PPO [id number] 2022-Present [phone] [address] [place] [address] PPO [id number] 2022 Medicare [id number] 2022 Private Health Insurance AETNA A [facility] [employer] [id number] 2022-Present [phone] [address] [place] [address] PPO [id number] 2019 Unknown MMO MMO [employer]PA [id number] 2019-Present [address] [place] [address] PPO [id number] 2019 Unknown MMO MMO [employer] [id number] 2019-Present [address] [place] [address] PPO [id number] 2019 Unknown [id number] Social History Date Type Detail Facility Start: 01-09-2022 Tobacco smoking stat [facility] Never smoked tobacco [facility] Start: 08-10-2021 End: 08-10-2023 Alcohol intake Current drinker of alcohol (finding) [facility] Start: 05-05-2015 History SDOH Alcohol Comment occ [facility] Start: 05-22-2019 History SDOH Financial 5 [facility] Start: 05-22-2019 History SDOH Food Worry 1 [facility] Start: 05-22-2019 History SDOH Transpo rt Med 2 [facility] Start: 05-22-2019 Education 21 [facility] Start: 1990 Sex Assigned At Not on file [facility] Start: 07-11-2021 End: 01-09-2022 Exposure to SARS-CoV-2 (event) Not sure [facility] Start: 01-09-2022 Tobacco use and exposure Smokeless tobacco non-user [facility] Work Phone: Start: 06-21-2022 End: 08-10-2023 History of Social function [facility] Work Phone: Start: 06-21-2022 End: 08-10-2023 Tobacco use panel [facility] Work Phone: How hard is it for y ou to pay for the very basics like food, housing, medical care, and heating Not hard at all [facility] Work Phone: (I/We) worried zach er (my/our) food would run out before (I/we) got money to buy more. Never true [facility] Work Phone: Start: 08-10-2023 [facility]: 1990 [facility] Start: 08-10-2023 Gender identity Identifies as female gender (finding) [facility] Clinical Notes 07-04-2021 to 08-10-2023 Terrie Canela APRN.[facility] - 08/10/2023 7:29 AM Juanito Canela APRN.[facility] - 06/21/2022 3:19 PM Juanito Canela APRN.[facility] - 06/01/2022 3:45 PM ESTPatient Instructions Note Date & Type Note Facility 08-10-2023 History of Presen t illness Narrative Lisa is a 33 year old who presents for an annual gynecologic exam without complaints. Menses: cycles every 25 days and 4 days of flow. Contraception:tubal sterilization HPV vaccine: Yes Last Pap: 05/31/2021 normal HPV: 05/31/2021 negative History of abnormal pap: Yes 2018 ASCUS HPV: negative Last mammogram: never Sexually active: Yes History of STDS: None Patient concerns for STD exposure: No. Time with current partner: 8 years Pain with intercourse: No Postcoital bleeding: No OB History T0 L0 SAB0 IAB0 Ectopic0 Multiple0 Live Births0 Car Knocker History LMP: 05/07/2017, IUD Age at Menarche: Age at First : Age at Menopause: Car Knocker History Comments: Sexual Activity: Yes; Male; bilateral salpingectomy Contraception: I.U.D., Tubal Ligation PAST MEDICAL HISTORY Diagnosis Date Acne Encounter for insertion of mirena IUD 04/12/2018 PMH - PAST MEDICAL HISTORY OF [id number] Right and Left Herniorrhaphy PMH - PAST MEDICAL HISTORY OF 08/1994 normal color vision Rosacea PAST SURGICAL HISTORY Procedure Laterality Date EXTRACTION, ERUPTED TOOTH OR EXPOSED ROOT (ELEVATION AND/OR FORCEPS REMOVAL) HERNIA REPAIR HX 1992 double hernia SALPINGECTOMY 08/25/2021 Laparoscopic B/L Salpingectomy at [facility]-Dr. Sarmiento FAMILY HISTORY Problem Relation Age of Onset Heart Failure Mother 61 Diabetes Maternal Grandmother Maternal and Paternal side. other (Hyperlipidemia) Maternal Grandmother other (glaucoma) Maternal Grandmother pgfa and father SOCIAL HISTORY Social History Tobacco Use Smoking status: Never Smokeless tobacco: Never Vaping Use Vaping Use: Never used Substance Use Topics Alcohol use: Yes Comment: occ Drug use: No REVIEW OF SYSTEMS Abdomen: No abdominal pain, nausea, vomiting, diarrhea, or constipation. No bloating, early satiety, indigestion, or increased flatulence. Bladder: No dysuria, gross hematuria, urinary frequency, urinary urgency, or incontinence. Breast: No breast lumps, nipple d/c, overlying skin changes, redness or skin retraction. Allergies and current medication updated:Yes EXAM: BP 98/60 Ht 5' 3 (1.60m) Wt 120 lb (54.4kg) LMP 08/03/2023 BMI 21.26 kg/(m^2). GENERAL: pleasant, female in no apparent distress HEENT: Normocephalic, atraumatic, mucus membranes moist, and no lesions NECK: Supple, full range of motion, no adenopathy, and thyroid normal DERMATOLOGY: Normal, without lesions, non-icteric, and non-hirsute BREAST: soft, non-tender, symmetric, no dominant mass, normal nipple-areolar complex, no lymphadenopathy, and no nipple discharge CHEST: Normal inspiratory effort ABDOMEN: soft, non-tender, and no masses PELVIC: external genitalia normal, normal Bartholin's glands, urethra, [place]'s glands, no vulvar lesions, no cervical lesions, good vaginal support, physiologic discharge present, normal appearing perineal body and perianal region BIMANUAL: uterus normal size, shape and consistency, no adnexal masses, and non-tender RECTOVAGINAL: deferred. NEURO: alert and oriented x3,exam grossly non-focal EXTREMITIES: normal ASSESSMENT/PLAN: 1) Health maintenance: Pap/HPV up to date. Mammogram starting age 40. Nutrition, exercise and routine health maintenance exams reviewed. HPV vaccine: completed series 2) Contraception: tubal sterilization. Contraceptive options reviewed and information provided. 3) STD screening: Declined STD check. 4) Follow up one year or sooner as needed Terrie Canela APRN.CNP documented in this encounter [facility] 06-21-2022 Note HNO ID: [id number] Author: Terrie Canela APRN.CNP Service: ? Author Type: Nurse Practitioner Type: Progress Notes Filed: 06/21/2022 3:59 PM Note Text: Community Health Promoter offered: Patient declines. Lisa presents for removal of IUD due to mood changes. 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 UNIVERSAL PROTOCOL / SAFETY CHECKLIST Procedure to be Performed: IUD removal Sign In: A Moment of CARE was completed. Personnel directly involved with the procedure wore the appropriate PPE (Personal Protective Equipment). Patient/Surrogate Stated/Verified: PATIENT VERIFIED(optional for EMERGENT procedures): Patient name, Date of , Relevant allergies, and The intended procedure Time Out Communication: Intended patient and procedure match the source documents. Consent documented and matches the intended procedure. Sign Out: SIGN OUT (optional for EMERGENT procedures): All instruments, equipment, possible retained foreign bodies accounted for. Post-procedure follow-up management communicated and Plan of Care Visit completed when applicable. Planning to stop spironolactone. Terrie Canela APRN.CNP PROCEDURE: Speculum placed in vagina, IUD string visualized and grasped with ring forceps. ASSESSMENT/PLAN: IUD removed without difficulty, intact, and patient tolerated procedure well. Contraception plans:tubal sterilization, using NuvaRing for menstrual control. Terrie Canela APRN.CNP [facility] 06-21-2022 History of Presen t illness Narrative Community Health Promoter offered: Patient declines. Lisa presents for removal of IUD due to mood changes. 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 UNIVERSAL PROTOCOL / SAFETY CHECKLIST Procedure to be Performed: IUD removal Sign In: A Moment of CARE was completed. Personnel directly involved with the procedure wore the appropriate PPE (Personal Protective Equipment). Patient/Surrogate Stated/Verified: PATIENT VERIFIED(optional for EMERGENT procedures): Patient name, Date of , Relevant allergies, and The intended procedure Time Out Communication: Intended patient and procedure match the source documents. Consent documented and matches the intended procedure. Sign Out: SIGN OUT (optional for EMERGENT procedures): All instruments, equipment, possible retained foreign bodies accounted for. Post-procedure follow-up management communicated and Plan of Care Visit completed when applicable. Planning to stop spironolactone. Terrie Cnaela APRN.CNP PROCEDURE: Speculum placed in vagina, IUD string visualized and grasped with ring forceps. ASSESSMENT/PLAN: IUD removed without difficulty, intact, and patient tolerated procedure well. Contraception plans:tubal sterilization, using NuvaRing for menstrual control. Terrie Canela APRN.JAH documented in this encounter [facility] 06-01-2022 Note HNO ID: [id number] Author: Terrie Canela APRN.JAH Service: ? Author Type: Nurse Practitioner Type: Progress Notes Filed: 06/01/2022 4:43 PM Note Text: Lisa is a 32 year old who presents for an annual gynecologic exam with complaints of mood swings,anger, irritability, feeling out of control and breast tenderness starting a couple of day before menses and continuing x 4 days.. [place] better with continuous NuvaRing but changed to Mirena due to spotting. Premenstrual symptoms were much better until she started light menses monthly 6 months ago. Considering have IUD removed. Menses: monthly spotting x 6 months - Mirena IUD inserted 04/2018 Contraception: tubal sterilization. Mirena IUD remains in place. HPV vaccine: Yes Last Pap: 05/31/2021 normal HPV: negative History of abnormal pap: Yes, 2018 ASCUS HPV: negative Last mammogram: never Sexually active: Yes Patient concerns for STD exposure: No. Time with current partner: 7 years Pain with intercourse: No Postcoital bleeding: No Documentation from previous visit of 05/27/2020 was copied and pasted, documentation has been reviewed and edited as necessary for today's visit. OB History T0 L0 SAB0 IAB0 Ectopic0 Multiple0 Live Births0 Car Knocker History LMP: 05/07/2017, IUD Age at Menarche: Age at First : Age at Menopause: Car Knocker History Comments: Sexual Activity: Yes; Male; bilateral salpingectomy Contraception: I.U.D., Tubal Ligation PAST MEDICAL HISTORY Diagnosis Date Acne Encounter for insertion of mirena IUD 04/12/2018 PM - PAST MEDICAL HISTORY OF [id number] Right and Left Herniorrhaphy PM - PAST MEDICAL HISTORY OF 08/1994 normal color vision Rosacea PAST SURGICAL HISTORY Procedure Laterality Date EXTRACTION, ERUPTED TOOTH OR EXPOSED ROOT (ELEVATION AND/OR FORCEPS REMOVAL) HERNIA REPAIR HX 1992 double hernia SALPINGECTOMY 08/25/2021 Laparoscopic B/L Salpingectomy at [facility]-Dr. Sarmiento FAMILY HISTORY Problem Relation Age of Onset Heart Failure Mother 61 Diabetes Maternal Grandmother Maternal and Paternal side. other (Hyperlipidemia) Maternal Grandmother other (glaucoma) Maternal Grandmother pgfa and father SOCIAL HISTORY Social History Tobacco Use Smoking status: Never Smokeless tobacco: Never Vaping Use Vaping Use: Never used Substance Use Topics Alcohol use: Yes Comment: occ Drug use: No REVIEW OF SYSTEMS Abdomen: No abdominal pain, nausea, vomiting, diarrhea, or constipation. No bloating, early satiety, indigestion, or increased flatulence. Bladder: No dysuria, gross hematuria, urinary frequency, urinary urgency, or incontinence. Breast: No breast lumps, nipple d/c, overlying skin changes, redness or skin retraction. Has pre-menstrual breast tenderness. Allergies and current medication updated:Yes EXAM: BP 98/60 Ht 5' 4 (1.63m) Wt 118 lb (53.5kg) LMP 05/07/2017 BMI 20.24 kg/(m2). GENERAL: pleasant, female in no apparent distress HEENT: Normocephalic, atraumatic, mucus membranes moist, and no lesions NECK: Supple, full range of motion, no adenopathy, and thyroid normal DERMATOLOGY: Normal, without lesions, non-icteric, and non-hirsute BREAST: soft, non-tender, symmetric, no dominant mass, normal nipple-areolar complex, no lymphadenopathy, and no nipple discharge CHEST: Normal inspiratory effort ABDOMEN: soft, non-tender, and no masses PELVIC: external genitalia normal, normal Bartholin's glands, urethra, [place]'s glands, no vulvar lesions, no cervical lesions, good vaginal support, physiologic discharge present, normal appearing perineal body and perianal region. IUD strings visualized. BIMANUAL: uterus normal size, shape and consistency, no adnexal masses, and non-tender RECTOVAGINAL: deferred. NEURO: alert and oriented x3,exam grossly non-focal EXTREMITIES: normal ASSESSMENT/PLAN: 1) Health maintenance: Pap/HPV up to date. Mammogram starting age 40. Nutrition, exercise and routine health maintenance exams reviewed. HPV vaccine: completed series 2. PMDD (premenstrual dysphoric disorder) - ICD9: 625.4, ICD10: F32.81 Symptoms much improved with drug-induced amenorrhea. Returned 6 months ago when monthly spotting returned. - REMOVE INTRAUTERINE DEVICE - ETONOGESTREL 0.12 MG-ETHINYL ESTRADIOL 0.015 MG/24 HR VAGINAL RING 3. Breakthrough bleeding with IUD - ICD9: 626.6, V45.51, ICD10: N92.1, Z97.5 - REMOVE INTRAUTERINE DEVICE - ETONOGESTREL 0.12 MG-ETHINYL ESTRADIOL 0.015 MG/24 HR VAGINAL RING 4. Encounter for initial management of nuvaring - ICD9: V25.02, ICD10: Z30.49 - Has used NuvaRing in the past and has no questions. - ETONOGESTREL 0.12 MG-ETHINYL ESTRADIOL 0.015 MG/24 HR VAGINAL RING 5) Contraception: tubal sterilization. Contraceptive options reviewed and information provided. 6) STD screening: Declined STD check. 7) Follow up one year or sooner as needed Terrie Canela APRN.[facility] 06-01-2022 History of Presen t illness Narrative Lisa is a 32 year old who presents for an annual gynecologic exam with complaints of mood swings,anger, irritability, feeling out of control and breast tenderness starting a couple of day before menses and continuing x 4 days.. [place] better with continuous NuvaRing but changed to Mirena due to spotting. Premenstrual symptoms were much better until she started light menses monthly 6 months ago. Considering have IUD removed. Menses: monthly spotting x 6 months - Mirena IUD inserted 04/2018 Contraception: tubal sterilization. Mirena IUD remains in place. HPV vaccine: Yes Last Pap: 05/31/2021 normal HPV: negative History of abnormal pap: Yes, 2017 ASCUS HPV: negative Last mammogram: never Sexually active: Yes Patient concerns for STD exposure: No. Time with current partner: 7 years Pain with intercourse: No Postcoital bleeding: No Documentation from previous visit of 05/27/2020 was copied and pasted, documentation has been reviewed and edited as necessary for today's visit. OB History T0 L0 SAB0 IAB0 Ectopic0 Multiple0 Live Births0 Car Knocker History LMP: 05/07/2017, IUD Age at Menarche: Age at First : Age at Menopause: Car Knocker History Comments: Sexual Activity: Yes; Male; bilateral salpingectomy Contraception: I.U.D., Tubal Ligation PAST MEDICAL HISTORY Diagnosis Date Acne Encounter for insertion of mirena IUD 04/12/2018 [facility] - [place]ST MEDICAL HISTORY OF [id number] Right and Left Herniorrhaphy [facility] - PAST MEDICAL HISTORY OF 08/1994 normal color vision Rosacea PAST SURGICAL HISTORY Procedure Laterality Date EXTRACTION, ERUPTED TOOTH OR EXPOSED ROOT (ELEVATION AND/OR FORCEPS REMOVAL) HERNIA REPAIR HX 1992 double hernia SALPINGECTOMY 08/25/2021 Laparoscopic B/L Salpingectomy at [facility]-Dr. Sarmiento FAMILY HISTORY Problem Relation Age of Onset Heart Failure Mother 61 Diabetes Maternal Grandmother Maternal and Paternal side. other (Hyperlipidemia) Maternal Grandmother other (glaucoma) Maternal Grandmother pgfa and father SOCIAL HISTORY Social History Tobacco Use Smoking status: Never Smokeless tobacco: Never Vaping Use Vaping Use: Never used Substance Use Topics Alcohol use: Yes Comment: occ Drug use: No REVIEW OF SYSTEMS Abdomen: No abdominal pain, nausea, vomiting, diarrhea, or constipation. No bloating, early satiety, indigestion, or increased flatulence. Bladder: No dysuria, gross hematuria, urinary frequency, urinary urgency, or incontinence. Breast: No breast lumps, nipple d/c, overlying skin changes, redness or skin retraction. Has pre-menstrual breast tenderness. Allergies and current medication updated:Yes EXAM: BP 98/60 Ht 5' 4 (1.63m) Wt 118 lb (53.5kg) LMP 05/07/2017 BMI 20.24 kg/(m^2). GENERAL: pleasant, female in no apparent distress HEENT: Normocephalic, atraumatic, mucus membranes moist, and no lesions NECK: Supple, full range of motion, no adenopathy, and thyroid normal DERMATOLOGY: Normal, without lesions, non-icteric, and non-hirsute BREAST: soft, non-tender, symmetric, no dominant mass, normal nipple-areolar complex, no lymphadenopathy, and no nipple discharge CHEST: Normal inspiratory effort ABDOMEN: soft, non-tender, and no masses PELVIC: external genitalia normal, normal Bartholin's glands, urethra, [place]'s glands, no vulvar lesions, no cervical lesions, good vaginal support, physiologic discharge present, normal appearing perineal body and perianal region. IUD strings visualized. BIMANUAL: uterus normal size, shape and consistency, no adnexal masses, and non-tender RECTOVAGINAL: deferred. NEURO: alert and oriented x3,exam grossly non-focal EXTREMITIES: normal ASSESSMENT/PLAN: 1) Health maintenance: Pap/HPV up to date. Mammogram starting age 40. Nutrition, exercise and routine health maintenance exams reviewed. HPV vaccine: completed series 2. PMDD (premenstrual dysphoric disorder) - ICD9: 625.4, ICD10: F32.81 Symptoms much improved with drug-induced amenorrhea. Returned 6 months ago when monthly spotting returned. - REMOVE INTRAUTERINE DEVICE - ETONOGESTREL 0.12 MG-ETHINYL ESTRADIOL 0.015 MG/24 HR VAGINAL RING 3. Breakthrough bleeding with IUD - ICD9: 626.6, V45.51, ICD10: N92.1, Z97.5 - REMOVE INTRAUTERINE DEVICE - ETONOGESTREL 0.12 MG-ETHINYL ESTRADIOL 0.015 MG/24 HR VAGINAL RING 4. Encounter for initial management of nuvaring - ICD9: V25.02, ICD10: Z30.49 - Has used NuvaRing in the past and has no questions. - ETONOGESTREL 0.12 MG-ETHINYL ESTRADIOL 0.015 MG/24 HR VAGINAL RING 5) Contraception: tubal sterilization. Contraceptive options reviewed and information provided. 6) STD screening: Declined STD check. 7) Follow up one year or sooner as needed Terrie Canela APRN.BAG BUNDLER documented in this encounter [facility] 01-09-2022 Note HNO ID: [id number] Author: Ingrid Lozano LPN Service: ? Author Type: ? Type: Progress Notes Filed: 01/09/2022 3:58 PM Note Text: Schedule for Gardasil injections: Routine schedule is 0,2, and 6 months Minimum intervals: 4 weeks between doses 1 and 2 12 weeks between doses 2 and 3 4 day 'jaycee period' can be applied Gardasil Questions: Please note: if patient is overdue for a yearly exam, they will need to have yearly scheduled within the next 6 months at the time Gardasil is given. Was your last yearly exam more than 18 months ago? No. Are you ? No. Do you have an elevated temp? No. See immun/inj tab for lot #, expiration date. Ingrid Lozano LPN [facility] 01-09-2022 Instructions Ingrid Lozano LPN - 01/09/2022 3:54 PM EDT HUMAN PAPILLOMAVIRUS (HPV) What is HPV ? HPV (human papillomavirus) is a common virus that affects both females and males.Most types of HPV are harmless, do not cause any symptoms, and go away on their own. About 30 types of HPV are known as genital HPV since they affect the genital area.Some types are high risk and can cause cervical cancer or abnormal cells in the lining of the cervix that sometimes turn into cancer.Others are low risk and can cause genital warts and changes in the cervix that are benign (abnormal but noncancerous). WHO GETS GENITAL HPV ? Anyone who has any kind of sexual activity involving genital contact could get genital HPV. Because many people who have HPV may not show any signs or symptoms, they can transmit the virus without even knowing it. HPV is more common than you might think.In 2005, approximately 20 million Americans had genital HPV.More than 6 million new cases of genital HPV are diagnosed in the [place] every year. HOW DO I KNOW IF I HAVE HPV ? Because HPV may not show any signs or symptoms, you probably won't know you have it.Most women are diagnosed with HPV as a result of an abnormal Pap test.A Pap test (also known as a Pap smear) is part of a gynecological exam and helps detect abnormal cells in the lining of the cervix before they have the chance to become precancers or cervical cancer. Many cervical precancers (changes that could lead to cancer) are related to HPV and can be treated successfully if detected early.That's why early detection is so important. WHAT HAPPENS IF I GET HPV ? In most people, the body's defenses are enough to clear HPV. If not cleared by the body, some HPV types cause genital warts.Other types cause abnormal changes in the cells lining the cervix that can lead to precancers and even turn into cervical cancer later in life. CERVICAL CANCER WHAT IS CERVICAL CANCER ? Cervical Cancer is cancer of the cervix.The cervix is the part of the uterus that connects the upper part of the uterus (the womb) and the vagina. Cervical cancer is a serious condition that can be life threatening.When a woman becomes infected with certain high-risk types of HPV and does not clear the infection, abnormal cells can develop in the lining of the cervix. If not discovered early and treated, these abnormal cells can become cervical precancers and then possibly cancer.Most often this can take a number of years, although in rare cases it can happen within a year. WHO GETS CERVICAL CANCER ? About half of all females diagnosed with cervical cancer are between 35 and 55 years of age.What many of these women may not realize is that they were most likely exposed to one of the high-risk types of HPV during their teens and 20's. The [place] [employer] estimated that in 2005 there were 10,370 new cases of cervical cancer diagnosed in the [place], and 3,710 women from the disease. HOW DO I KNOW IF I HAVE CERVICAL CANCER ? The usual way to detect cervical cancer is through a Pap test.If the results of a Pap test indicate that you have abnormal cervical cells, it's important to follow your healthcare professional's recommendations for more testing, such as repeat Pap testing, HPV DNA testing, colposcopy (examination of the cervix through a magnifying device), and possible biopsy (obtaining a tissue sample for analysis in the lab). HOW IS CERVICAL CANCER TREATED ? The three main methods are surgery (an operation to remove the cancer), radiation therapy (using high energy beams to destroy cancer cells), and chemotherapy (using medications to disrupt the growth of cancer cells). Sometimes treatment includes two or more of these methods. Before choosing a treatment, a healthcare professional will consider the size of the cancer, whether it has spread, the woman's age and overall health, and patient preferences.The treatment that is right for one person may not be right for someone else. ABNORMAL CERVICAL CELLS WHAT ARE ABNORMAL CERVICAL CELLS ? Abnormal cervical cells (also called cervical dysplasia) are cells in the lining of the cervix that have changed in appearance. The more severe the cervical abnormality, the more likely it is that cervical cancer could develop in the future.Most often this can take a number of years, although in rare cases it can happen within a year. WHAT CAUSES ABNORMAL CERVICAL CELLS ? Abnormal cervical cells may have a number of different causes, such as an infection or inflammation, but are commonly caused by certain types of HPV (human papillomavirus). HOW DO I KNOW IF I HABE ABNORMAL CERVICAL CELLS ? The usual way to detect abnormal cervical cells is through a Pap test.You may have additional testing, such as repeat Pap testing, HPV DNA testing, colposcopy, and possible biopsy. An abnormal biopsy result may be reported as TOMÁS (cervical intraepithelial neoplasia). The term TOMÁS, along with a number (1 to 3), describes how much of the thickness of the lining of the cervix contains abnormal cells.A diagnosis of TOMÁS 3 means there are severely abnormal cervical cells through the entire thickness of the lining of the cervix. HOW ARE ABNORMAL CERVICAL CELLS TREATED ? Most abnormal cells in the lining of the cervix will eventually go away on their own.If the abnormalities are mild, the healthcare professional may choose to closely monitor them. If the abnormalities are more severe, removing these cells can almost always prevent cervical cancer from developing in the future. Methods commonly used to treat abnormal cervical cells include freezing, removing them using an electrical instrument, and conventional surgery. The treatment may have to be repeated if the abnormal cells reappear. GENITAL WARTS WHAT ARE GENITAL WARTS ? Genital warts are flesh-colored growths that are most often caused by certain types of HPV.Genital warts most often appear on the external genitals or near the anus of females and males.Less commonly, genital warts can appear inside the vagina and on the cervix. WHO GETS GENITAL WARTS ? Anyone who has any kind of sexual activity involving genital contact could get genital HPV, and certain types of HPV can develop into genital warts.Because many people who have HPV may not show any signs or symptoms, they can transmit the virus without even knowing it.After sexual contact with an infected person, genital warts may appear within weeks, months, years, or not at all. Genital warts are very common. It is estimated that in 2002, there were over 260,000 new cases of genital warts in the [place] alone. HOW DO I KNOW IF I HAVE GENITAL WARTS ? A healthcare professional can usually recognize genital warts just by seeing them. Genital warts often do not cause symptoms. In some cases; however, they may cause burning, itching, or pain. HOW ARE GENITAL WARTS TREATED ? Genital warts sometimes disappear on their own without treatment. However, there is no way to tell if they will disappear or grow larger. A healthcare professional may choose to apply a special cream or solution to the warts. Alternatively, some genital warts can be removed by freezing, burning, or using a laser treatment. If these treatments don't work, they may be removed by surgery. There is a chance that genital warts can reappear after treatment, since the HPV that caused them may still be present. documented in this encounter [facility] 01-09-2022 History of Presen t illness Narrative Schedule for Gardasil injections: Routine schedule is 0,2, and 6 months Minimum intervals: 4 weeks between doses 1 and 2 12 weeks between doses 2 and 3 4 day 'jaycee period' can be applied Gardasil Questions: Please note: if patient is overdue for a yearly exam, they will need to have yearly scheduled within the next 6 months at the time Gardasil is given. Was your last yearly exam more than 18 months ago? No. Are you ? No. Do you have an elevated temp? No. See immun/inj tab for lot #, expiration date. Ingrid Lozano LPN documented in this encounter [facility] 09-27-2021 Miscellaneous Notes Kimber, Please review patient MyChart message and assist her. This was a wellness visit. Terrie Canela APRN.BAG BUNDLER Please see pt's mychart message and advise. Ingrid Lozano LPN documented in this encounter [facility] 09-06-2021 Note HNO ID: [id number] Author: Kendra Sarmiento MD Service: ? Author Type: Physician Type: Progress Notes Filed: 09/06/2021 11:38 AM Note Text: DATE OF SERVICE: 09/06/2021 PROBLEM: Lisa Taveras presents for postop visit. SURGERY AND DATE: 08/25/21 PATHOLOGY: benign SUBJECTIVE/INTERVAL HISTORY: Lisa Taveras reports that she feels well. No fever or chills. No shortness of breath, cough, or chest pain. No incisional redness, swelling, or drainage. BM and urination normal. OBJECTIVE: ABDOMEN: Abdomen soft, non-tender, no hepatosplenomegaly. Incisions healing well. ASSESSMENT: postop check PLAN: 1. Discussed results of pathology and implications with patient. 2. Postop restrictions reviewed. Kendra Sarmiento MD [facility] 08-25-2021 Note HNO ID: [id number] Author: Kendra Sarmiento MD Service: ? Author Type: Physician Type: Progress Notes Filed: 08/25/2021 10:00 AM Note Text: Patient underwent l/s bilateral salpingectomy at [facility] for sterilization w/o complication today. Kendra Sarmiento MD [facility] 07-04-2021 Note HNO ID: [id number] Author: Ingris Gurorla Ma Service: ? Author Type: ? Type: Progress Notes Filed: 07/04/2021 4:09 PM Note Text: Patient identified by name and date of . Lisa Taveras is here for her HPV 9 vaccination, injection # one of the series. Patient ?No Gardasil injection was given without incident. See immunizations for details of immunizations administered today. VIS sheet provided: Yes Patient advised to follow up in 2 months from the 1st injection Provider Dr Sarmiento was present in office at time of injection. Ingris Gurrola Ma [facility] 07-04-2021 Note HNO ID: [id number] Author: Kendra Sarmiento MD Service: ? Author Type: Physician Type: Progress Notes Filed: 07/04/2021 4:09 PM Note Text: Lisa Taveras is a 31 year old female who presents for problem visit for sterilization request. She does not desire future child bearing and wants permanent sterilization. She has a Mirena nad plans to keep it for 6-7 years as long as bleeding is controlled. OB History T0 L0 SAB0 IAB0 Ectopic0 Multiple0 Live Births0 Car Knocker History LMP: 05/07/2017, IUD Age at Menarche: Age at First : Age at Menopause: Car Knocker History Comments: Sexual Activity: Yes; Male Contraception: I.U.D. PAST MEDICAL HISTORY Diagnosis Date - Acne - Encounter for insertion of mirena IUD 04/12/2018 - [facility] - PAST MEDICAL HISTORY OF [id number] Right and Left Herniorrhaphy - [facility] - PAST MEDICAL HISTORY OF 08/1994 normal color vision - Rosacea PAST SURGICAL HISTORY Procedure Laterality Date - EXTRACTION, ERUPTED TOOTH OR EXPOSED ROOT (ELEVATION AND/OR FORCEPS REMOVAL) - HERNIA REPAIR 1992 double hernia FAMILY HISTORY Problem Relation Age of Onset - Heart Failure Mother 61 - Diabetes Maternal Grandmother Maternal and Paternal side. - other (Hyperlipidemia) Maternal Grandmother - other (glaucoma) Maternal Grandmother pgfa and father Social History Tobacco Use - Smoking status: Never Smoker - Smokeless tobacco: Never Used Vaping Use - Vaping Use: Never used Substance Use Topics - Alcohol use: Yes Comment: occ - Drug use: No Current Outpatient Medications Medication Sig - MULTIVITAMIN ORAL Take by mouth. - spironolactone (ALDACTONE) 100 mg tablet Take 100 mg by mouth once daily. - spironolactone (ALDACTONE) 50 mg tablet Take 50 mg by mouth daily at bedtime. - levonorgestrel (MIRENA) 20 mcg/24 hr (5 years) IUD 1 Each by INTRAUTERINE route one time only. - Lactobacillus combo no.23 (SAMSON PROBIOTIC) 14 billion cell cap - COMPOUNDED PRESCRIPTION Clear skin vitamin (Patient not taking: Reported on 05/31/2021 ) No current facility-administered medications for this visit. Allergies As of Date: 07/04/2021 Allergen Noted Reaction SEPTRA [SULFAMETHOXAZOLE-TRIMETHO*02/03 Rash NEOSPORIN (NEOMYCIN-POLYMYX) 05/05/2015 Rash SOLODYN [MINOCYCLINE] 05/05/2015 Hives Fully Assessed 07/04/2021 REVIEW OF SYSTEMS no new c/o Expanded ROS: N/A Allergies and current medication updated:Yes EXAM: LMP 05/07/2017 GENERAL: pleasant, female in no apparent distress ASSESSMENT AND PLAN: sterilization request. Risks, benefits and alternatives to sterilization have been discussed with the patient. She declines reversible options including LARC. She understands sterilization is permanent, irreversible, risks of failure, regret and ectopic. In addition she understands there are surgical risks as well. Her questions were answered to her satisfaction and she desires to proceed. Desires HPV vaccine. Checked w/ insurance and is covered. First dose today. Medical Decision Making Kendra Sarmiento MD [facility] Encounter for gynecological examination with abnormal finding- Primary Routine gynecological examination PMDD (premenstrual dysphoric disorder) Premenstrual tension syndromes Breakthrough bleeding with IUD Metrorrhagia Encounter for initial management of nuvaring General counseling for initiation of other contraceptive measures [facility] Diagnosis Encounter for IUD removal- Primary Encounter for removal of intrauterine contraceptive device [facility] Diagnosis Encounter for gynecological examination (general) (routine) without abnormal findings- Primary [facility] Outpatient Procedure (Routine) - Authorized Specialty Diagnoses / Procedures Referred By Isabel hollingsworth Referred To Contact [facility] Diagnoses PMDD (premenstrual dysphoric disorder) Breakthrough bleeding with IUD Procedures REMOVE INTRAUTERINE DEVICE REMOVE INTRAUTERINE DEVICE Terrie Canela, PATTERN PUNCHER.BAG BUNDLER [address] [place] [address] [facility] [place] [address] [place] [address] Referral ID Status Reason Start Date Expiration Date Visits Requested Visits Authorized [id number] Authorized Auto-Generat ed Referral 06/01/2023 1 [facility] Procedure (Routine) - Pending Review Specialty Diagnoses / Procedures Referred By Isabel hollingsworth Referred To Contact [facility] Diagnoses Encounter for IUD removal Procedures REMOVE INTRAUTERINE DEVICE REMOVE INTRAUTERINE DEVICE Terrie Canela APRN.CNP [address] [place] [address] [facility] [place] [address] [place] [address] Referral ID Status Reason Start Date Expiration Date Visits Requested Visits Authorized [id number] Pending Review Auto-Generat ed Referral 06/21/2022 06/21/2023 1 1 [facility] Advance Directives Documents on File Type Date Recorded Patient Ostomy Care Nurse Expl anation Advance Directive(s) Summary Purpose Family History No Family History Records Found Additional Source Comments Source Comments (unrecognize d section and content) In the event this informatio n is protected by the [facility] Confidentiality of Alcohol and Drug Abuse Patient Records regulations: The Federal rules restrict any use of the information to criminally investigate or prosecute any alcohol or drug abuse patient.[facility] event this information is protected by the Federal Confidentiality of Alcohol and Drug Abuse Patient Records regulations: The Federal rules restrict any use of the information to criminally investigate or prosecute any alcohol or drug abuse patient.[facility] the event this information is protected by the Federal Confidentiality of Alcohol and Drug Abuse Patient Records regulations: The Federal rules restrict any use of the information to criminally investigate or prosecute any alcohol or drug abuse patient.[facility] the event this information is protected by the Federal Confidentiality of Alcohol and Drug Abuse Patient Records regulations: The Federal rules restrict any use of the information to criminally investigate or prosecute any alcohol or drug abuse patient.[facility] the event this information is protected by the Federal Confidentiality of Alcohol and Drug Abuse Patient Records regulations: The Federal rules restrict any use of the information to criminally investigate or prosecute any alcohol or drug abuse patient.[facility] the event this information is protected by the Federal Confidentiality of Alcohol and Drug Abuse Patient Records regulations: The Federal rules restrict any use of the information to criminally investigate or prosecute any alcohol or drug abuse patient.[facility] the event this information is protected by the Federal Confidentiality of Alcohol and Drug Abuse Patient Records regulations: The Federal rules restrict any use of the information to criminally investigate or prosecute any alcohol or drug abuse patient.[facility] the event this information is protected by the Federal Confidentiality of Alcohol and Drug Abuse Patient Records regulations: The Federal rules restrict any use of the information to criminally investigate or prosecute any alcohol or drug abuse patient.[facility] the event this information is protected by the Federal Confidentiality of Alcohol and Drug Abuse Patient Records regulations: The Federal rules restrict any use of the information to criminally investigate or prosecute any alcohol or drug abuse patient.[facility] Care Teams (unrecognized sec tion and content) Staff Counselor Relationship Specialty Start Date End Date Jaime Barajas MD PCP - General Family Practice 12/04/12 Staff Counselor Relationship Specialty Start Date End Date Jaime Barajas MD PCP - General Family Practice 12/04/12 Staff Counselor Relationship Specialty Start Date End Date Jaime Barajas MD PCP - General Family Practice 12/04/12 Staff Counselor Relationship Specialty Start Date End Date Jaime Barajas MD PCP - General Family Practice 12/04/12 Staff Counselor Relationship Specialty Start Date End Date Jaime Barajas MD PCP - General Family Medicine 12/04/12 Staff Counselor Relationship Specialty Start Date End Date Jaime Barajas MD PCP - General Family Medicine 12/04/12 Staff Counselor Relationship Specialty Start Date End Date Jaime Barajas MD PCP - General Family Medicine 12/04/12 Staff Counselor Relationship Specialty Start Date End Date Jaime Barajas MD PCP - General Family Medicine 12/04/12 Reason for Visit (unrecogniz ed section and content) Specialty Diagnoses / Procedures Referred By Contac t Referred To Contact [employer] Diagnoses Encounter for vaccination Gardasil #3 Procedures [id number] VACC 2/3 DOSE SCHED IM USE WHI NURSE Kendra Sarmiento MD [address] [place] [address] Wstr, Nurse Nailer Operator [facility] [address] [place] [address] Referral ID Status Reason Start Date Expiration Date Visits Re quested Visits Authorized [id number] Closed 12/28/2021 06/03/2022 1 1 Specialty Diagnoses / Procedures Referred By Contac t Referred To Contact Gynecology / [employer] Diagnoses Annual physical exam annual exam Procedures OFFICE/OUTPATIENT ESTABLISHED HIGH MDM 40-54 MIN EST I ANNUAL PATIENT Jaime Barajas MD [address] [place] [address] Terrie Canela APRN.BAG BUNDLER [address] [place] [address] Referral ID Status Reason Start Date Expiration Date Visits Re quested Visits Authorized [id number] Closed 05/17/2022 05/17/2023 1 1 Reason Onset Date Comments IUD Removal IUD Removal 06/21/2022 Specialty Diagnoses / Procedures Referred By Contac t Referred To Contact [facility] Diagnoses PMDD (premenstrual dysphoric disorder) Breakthrough bleeding with IUD Procedures REMOVE INTRAUTERINE DEVICE REMOVE INTRAUTERINE DEVICE Terrie Canela, MARÍA.BAG BUNDLER [address] [place] [address] [facility] [place] [address] [place] [address] Referral ID Status Reason Start Date Expiration Date V isits Requested Visits Authorized [id number] Closed Auto-Generate d Referral 06/01/2022 06/01/2023 1 1 Reason Comments [facility] INFORMATION SOURCE (unrecogn ized section and content) FOR RECORDS PERTAINING TO PATIENTS WHO ARE OR HAVE BEEN ENROLLED IN A CHEMICAL DEPENDENCY/SUBSTANCEABUSE PROGRAM, SOME INFORMATION MAY BE OMITTED. This clinical summary was aggregated from multiple sources. Caution should be exercised in using it in the provision of clinical care. This summary normalizes information from multiple sources, and as a consequence, information in this document may materially change the coding, format and clinical context of patient data. In addition, data may be omitted in some cases. CLINICAL DECISIONS SHOULD BE BASED ON THE PRIMARY CLINICAL RECORDS. [employer] [facility]. provides no warranty or guarantee of the accuracy or completeness of information in this document.
[2023-08-11 07:01] LABS: Anion Gap 10 (5-15); BUN 13 mg/dL (7-18); Calcium,Total 9.5 mg/dL (8.5-10.1); Chloride 106 mmol/L (98-107); EST Glomerular Filtration Rate 67 mL/min (>60); Est Glom Filt Rate - Afr Amer 81 mL/min (>60); Estimated Creatinine Clearance 65.57 ml/min; Glucose 182 mg/dL (74-106); Potassium 4.1 mmol/L (3.5-5.1); Sodium Level 136 mmol/L (136-145)
[2023-08-11 08:27] VITALS: BP 103/68; PULSE 86; RESP 16; TEMP 37.1; O2SAT 98
--- NOTE | 2023-08-11 08:47 | ED.RN ---
Nurse administered drinking trial and ambulation. Patient felt dizzy/lightheaded and felt flushed. Dr. Ross notified. Another Liter of fluid given.
[2023-08-11 10:00] VITALS: BP 101/63; PULSE 105; O2SAT 98
[2023-08-11 10:44] VITALS: BP 97/61; PULSE 87; RESP 16; TEMP 37.1; O2SAT 98
== END 2023-08-11 11:05 | disposition home or self-care (01) ==
LOC: ED 06:46
PROVIDERS: Emergency Provider Emergency Medicine; PCP Family Medicine; Visit Provider Emergency Medicine
DX: K52.9 Noninfective gastroenteritis and colitis, unspecified (principal); R73.9 Hyperglycemia, unspecified; E86.0 Dehydration; E87.20 Acidosis, unspecified
CPT/HCPCS: 36415; 80048; 96361; 96374; 99283; J7030; J2405

== ENCOUNTER → 2023-08-27 | Outpatient (CLI) | payer OTHER, SELFPAY ==
[2023-08-27 11:12] LABS: Anion Gap 3 (5-15); BUN 9 mg/dL (7-18); BUN/Creat Ratio 15.7 RATIO (10-20); Calcium,Total 8.7 mg/dL (8.5-10.1); Chloride 110 mmol/L (98-107); Cholesterol 161 mg/dL (200); Creatinine, Serum 0.57 mg/dL (0.55-1.02); EST Glomerular Filtration Rate 128 mL/min (>60); Est Glom Filt Rate - Afr Amer 155 mL/min (>60); Glucose 88 mg/dL (74-106); High Density Lipoprotein 53 mg/dL; Potassium 3.8 mmol/L (3.5-5.1); Sodium Level 141 mmol/L (136-145); Triglycerides 53 mg/dL; Very Low Density Lipoprotein 11 mg/dL (5-40)
== END | disposition home or self-care (01) ==
LOC: MFPLAB 09:05
PROVIDERS: PCP Family Medicine; Visit Provider Family Medicine
DX: Z01.419 Encounter for gynecological examination (general) (routine) without abnormal findings (principal)
CPT/HCPCS: 36415; 80048; 80061

== ENCOUNTER → 2023-11-08 | Outpatient (CLI) | payer OTHER, SELFPAY ==
[2023-11-08 15:49] LABS: Vitamin B12 517 pg/mL (211-911); Vitamin D,25 Hydroxy 29.7 ng/mL
[2023-11-08 16:16] LABS: Erythrocyte Sedimentation Rate 4 mm/hr (0-30)
[2023-11-08 16:19] LABS: Absolute Neutrophil Count 3.5 X10^3/uL (2.0-7.7); Basophil# 0.05 X10^3/uL; Basophil% 0.8 % (0-1); Eosinophil# 0.06 X10^3/uL; Hematocrit 39.2 % (37-47); Hemoglobin 12.9 g/dL (12.0-15.0); Lymphocyte % 31.1 % (19-41); Mean Corp Hgb Conc 32.9 g/dL (32-36); Mean Corpuscular Hgb 28.9 pg (27.0-32.0); Mean Corpuscular Volume 87.7 fL (81-99); Mean Platelet Vol. 10.9 fl (6.2-12.0); Monocyte# 0.57 X10^3/uL; Monocyte% 9.3 % (0-10); NRBC Flagged by Analyzer 0 % (0-5); Neutrophil # 3.51 X10^3/uL (2.7-7.7); Neutrophil % 57.6 % (47-70); Platelet Count 251 K/mm3 (150-450); RBC Distribution Width CV 13.2 % (11.6-14.6); RBC Distribution Width SD 42.1 fl (35.1-43.9); Red Blood Count 4.47 M/mm3 (4.2-5.4); White Blood Count 6.1 K/mm3 (4.4-11.0)
[2023-11-12 12:08] LABS: ANTINUCLEAR ANTIBODIES DIRECT Negative (Negative)
[2023-11-13 22:44] LABS: ALB/GLOB Ratio 1.3 RATIO (0.9-2.4); AST(SGOT) 17 U/L (15-37); Alanine Aminotransfer ALT/SGPT 19 U/L (13-56); Albumin, Serum 4.2 g/dL (3.2-5.0); Alkaline Phosphatase 56 U/L (45-117); Anion Gap 11 (5-15); BUN 7 mg/dL (7-18); CRP < 2.90 mg/L (0.0-3.0); Calcium,Total 9.2 mg/dL (8.5-10.1); Chloride 107 mmol/L (98-107); EST Glomerular Filtration Rate 101 mL/min (>60); Est Glom Filt Rate - Afr Amer 122 mL/min (>60); Ferritin 48 ng/mL (8-252); Globulin 3.3 g/dL (2.2-4.2); Glucose 120 mg/dL (74-106); Iron 111 ug/dL (50-170); Luteinizing Hormone 6.9 mIU/mL; Potassium 3.9 mmol/L (3.5-5.1); Protein, Total 7.5 g/dL (6.4-8.2); Rheumatoid Factor < 10.0 IU/mL (<15); Sodium Level 140 mmol/L (136-145); Thyroid Stim Hormone (TSH) 1.36 uIU/mL (0.358-3.74)
== END | disposition home or self-care (01) ==
PROVIDERS: PCP Family Medicine; Referring Provider Family Medicine; Visit Provider Family Medicine
DX: R53.83 Other fatigue (principal)
CPT/HCPCS: 36415; 80053; 82306; 82607; 82627; 82670; 82728; 83001; 83002; 83540; 84403; 84443; 85025; 85652; 86038; 86140; 86431; 82626

== ENCOUNTER → 2024-08-28 | Outpatient (CLI) | payer OTHER, SELFPAY ==
[2024-08-28 19:39] LABS: Anion Gap 16 (5-15); BUN 8 mg/dL (4-19); BUN/Creat Ratio 12.2 RATIO (10-20); Calcium,Total 8.9 mg/dL (7.6-11.0); Carbon Dioxide 18.5 mmol/L (21.0-32.0); Chloride 104 mmol/L (98-108); Creatinine, Serum 0.69 mg/dL (0.70-1.20); EST Glomerular Filtration Rate 116 (>60); Glucose 78 mg/dL (70-99); Sodium Level 138 mmol/L (133-145)
[2024-08-28 20:30] LABS: Cholesterol 180 mg/dL (<=200); High Density Lipoprotein 72 mg/dL; Low Density Lipoprotein Calc. 86 mg/dL; Triglycerides 110 mg/dL; Very Low Density Lipoprotein 22 mg/dL (5-40); cholesterol:hdl ratio screen 2.51
== END | disposition home or self-care (01) ==
LOC: MTLAB 08:56
PROVIDERS: PCP Family Medicine; Referring Provider Family Medicine; Visit Provider Family Medicine
DX: Z00.00 Encounter for general adult medical examination without abnormal findings (principal)
CPT/HCPCS: 36415; 80048; 80061